=== PATIENT | male | born 1980 | race Caucasian/White ===

== ENCOUNTER 2018-05-17 16:05 | Emergency (ER) | payer BC ==
--- NOTE | 2018-05-17 16:15 | ED Physician Documentation ---
General Adult - HISTORIAN Historian: patient - HPI Stated Complaint: left hand pinky finger with laceration Chief Complaint: Laceration/Recheck/Suture Onset: hours (1) Timing: still present Severity: mild Further Comments: yes (he states he was cutting with a new blade on his pocket knife and the blade went through the item he was cutting and cut his finger. No loss of feeling. No other complaints. He is UTD on his tetanus) Last known Well Code/Unknown Code: Unknown - ROS CONST: no problems - PAST HX Past History: none Allergies/Adverse Reactions: Allergies Allergy/AdvReac Type Severity Reaction Status Date / Time No Known Allergies Allergy Verified 05/17/18 16:43 Home Medications: Ambulatory Orders Medication Instructions Recorded NK 05/17/18 - SOCIAL HX Smoking History: non-smoker Alcohol Use: none Drug Use: none - FAMILY HX Family History: No - VITAL SIGNS Vital Signs: Vital Signs Temp Pulse Resp BP Pulse Ox 98.0 F 80 16 168/86 99 05/17/18 16:43 05/17/18 16:43 05/17/18 16:43 05/17/18 16:43 05/17/18 16:43 - REVIEWED ASSESSMENTS Nursing Assessment Reviewed: Yes Vitals Reviewed: Yes Procedures Wound Location: upper extremity Wound's Depth, Shape: superficial Wound Explored: clean Wound Repaired With: steri-strips ED Results Lab/Radiology - Orders Orders: ED Orders Category Date Time Status Cleanse with NS and Chlorhexid 1T Care 05/17/18 16:22 Active General Adult Physical Exam - PHYSICAL EXAM GENERAL APPEARANCE: no distress EENT: eye inspection normal, no signs of dehydration NECK: normal inspection RESPIRATORY: no resp distress, chest non-tender, breath sounds normal CVS: reg rate & rhythm, heart sounds normal ABDOMEN: soft, no distension BACK: normal inspection SKIN: warm/dry, other (small superficial laceration approx 1 cm at tip of finger ) NEURO: oriented X3 Discharge Clincal Impression: Laceration of finger Qualifiers: Encounter type: initial encounter Finger: little finger Damage to nail status: without damage Foreign body presence: without foreign body Laterality: left Qualified Code(s): S61.217A - Laceration without foreign body of left little finger without damage to nail, initial encounter Referrals: Primary Doctor,No [Primary Care Provider] - 2 Days Comments: 1. Keep area clean and dry 2. Monitor for s/sx of infection - redness, increase pain and drainage 3. See PCP in 2-4 days for any concerns 4. Return to ER for any concerns Condition: Stable Disposition: 01 HOME, SELF-CARE Decision to Admit: NO Date of Decison to Admit: 05/17/18 Decision Time: 16:40
[2018-05-17 16:36] VITALS: BP 168/86
== END 2018-05-17 16:43 | disposition home or self-care (01) ==
LOC: ED 16:05
DX: S61.217A Laceration without foreign body of left little finger without damage to nail, initial encounter (principal); W26.0XXA Contact with knife, initial encounter; Y93.89 Activity, other specified; Y92.9 Unspecified place or not applicable
CPT/HCPCS: 99281; 99282